=== PATIENT | male | born 1960 | race Caucasian/White ===

== ENCOUNTER 2017-02-13 21:33 | Emergency (ER) | payer OTHER ==
[~2017-02-13] VITALS: Ht 175.3 cm; Wt 80.5 kg
[~2017-02-13 21:33] MED LIST: AMOX1TAB10 PO; IBUP-1542 PO
[2017-02-13 22:08] VITALS: Ht 175.3 cm; Wt 80.5 kg
--- NOTE | 2017-02-14 00:20 | ERD ---
ER Documentation Chief Complaint Date/Time DATE: 02/14/17 TIME: 00:15 Chief Complaint PT HAS RIGHT THUMB PAIN ACCIDENT WITH DRILL BIT, X 2 DAYS , SWOLLLEN 10 [place] HPI 56-year-old male who presented emergency room for right thumb pain/swelling/ punctured wound. Stated that he injured this 1-1/2 day ago. Stated that he was fixing a metal when 1 of his coworker accidentally push it and it struck his right thumb/volar area. He stated that he developed a laceration in the volar area, then it got healed but eventually got swollen so he himself lacerated to try and drain the pus. Now he complains of increased swelling to right thumb. Denies headache, loss of consciousness, dizziness, blurry vision, changes in vision, photophobia, facial pain, ear pain, throat pain, difficulty swallowing, neck pain, shoulder pain, chest pain, cough, hemoptysis, abdominal pain, back pain, loss of appetite, nausea, vomiting, hematochezia, diarrhea, constipation, urinary symptoms, bladder and bowel incontinences, difficulty walking, recent travel, recent exposure to illness, recent antibiotic use in the last 3 months, fever, chills. Allergy: No known drug allergies. PMH: Hyperlipidemia. Medications: Simvastatin. Surgery: Left knee surgery. Family history: Denies. 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 Smokes about 10 sticks of cigarettes a day. Denies use of alcohol, use of illegal drugs. ROS All systems reviewed and are negative except as per history of present illness. Medications Home Meds Active Scripts Ibuprofen* (Motrin*) 600 Mg Tab, 600 MG PO Q8 for 10 Days, #30 TAB 0 Refills Prov:MERYL STAPLETON PA-C 07/22/16 Amoxicillin/Potassium Clav (Amox-Clav 875-125 mg Tablet) 875-125 mg Tab, 1 TAB PO BID for 7 Days, #14 TAB Prov:ADAM BRIONES MD 07/17/16 Allergies Allergies: Coded Allergies: No Known Allergy (Unverified , 07/17/16) PMhx/Soc History of Surgery: No Anesthesia Reaction: No Hx Neurological Disorder: No Hx Respiratory Disorders: No Hx Cardiac Disorders: Yes (HIGH CHOLESTEROL ) Hx Psychiatric Problems: No Hx Miscellaneous Medical Probl: No Hx Alcohol Use: No Hx Substance Use: No Hx Tobacco Use: Yes Smoking Status: Current every day smoker Physical Exam Vitals Vital Signs Date Time Temp Pulse Resp B/P Pulse Ox O2 Delivery O2 Flow Rate FiO2 02/13/17 22:08 98.6 89 17 151/89 99 Physical Exam CONSTITUTIONAL: Well-appearing; well-nourished; in no apparent distress. HEAD: Normocephalic; atraumatic. EYES: Conjunctiva clear, sclera non-icteric, EOM intact. PERRL Ears: Hearing intact. EACs clear, TMs non-bulging, non-inflamed, translucent & mobile, ossicles normal appearance, No obstructions, no erythema, no discharges Nose: No obstructions. No polyps. No external lesions. Mucosa non-inflamed. No external lesions, septum and turbinates normal. No rhinorrhea. No discharges. Frontal sinus is non-tender to palpation. Maxillary sinus is non-tender to palpation. MOUTH: Moist mucous membranes, no lesion, no obstructions, no vesicles, no thrush, patent airway Throat: Uvula in midline. Right tonsil is +1 with no erythema, no exudate. Left tonsil is +1 with no erythema, no exudate. Tolerating secretions well. Good gag reflex. Patent airway. Neck: Supple, without lesions, bruits, or adenopathy. No mass. Thyroid non- enlarged and non-tender to palpation. CHEST: Symmetrical chest. Respirations even and not labored. No retractions noted. CARDIOVASCULAR: Normal S1, S2. RRR. No murmurs, gallops. RESPIRATORY: Normal chest excursion with respiration; breath sounds clear and equal bilaterally; no wheezes, rhonchi, or rales. Breathing even and unlabored. Speaking in clear, full, and complete sentences w/ ease. ABDOMEN: Normal bowel sounds normal. Soft, round, non-distended, non-guarding, no tenderness, no rebound, no organomegaly, no masses, no pulsating abdominal mass. No hernia. No peritoneal signs. : No CVA tenderness. BACK: Symmetrical shoulder. Spine is midline without deformity, tenderness. No evidence of trauma or deformity. PELVIS: Stable pelvis. No evidence of trauma or deformity. MUSCULOSKELETAL: Normal gait and station. No misalignment, asymmetry, crepitation, defects, tenderness, masses, effusions, decreased range of motion, instability, atrophy or abnormal strength or tone in the head, neck, spine, ribs , pelvis or extremities. Right thumb volar area swelling. Right thumb volar area has 2 puncture wound no bleeding. Has good and full function of right thumb/fingers with full extension and flexion with a score of 5/5. Circulation sensation intact. No neurovascular deficits. No drainage.No calf tenderness. NEUROVASCULAR: Distal pulses are present. Pedal pulse are present, equal, and normal. Capillary refills are < 2 seconds. NEUROLOGIC: Alert and oriented x4. Speaks full and clear sentences. Cranial Nerves II-XII normal. Sensation to pain, touch, and proprioception normal. Grossly unremarkable. No neurologic deficits. Romberg test is negative. PSYCHOLOGICAL: The patients mood and manner are appropriate. No hallucinations , delusions. Not SI. Not HI. Has the capacity to decide for self SKIN: Normal for age and ethnicity; warm; dry; good turgor; no apparent lesions or exudates. No rashes, hives, discoloration. Right thumb volar area swelling. Right thumb volar area has 2 puncture wound no bleeding. No drainage. Results 24 hrs Current Medications Medications (Trade) Dose Ordered Sig/Gee Route PRN Reason Start Time Stop Time Status Last Admin Dose Admin Acetaminophen/ Hydrocodone Bitart ([place] (7.5-325)) 1 tab ONCE ONCE PO 02/14/17 00:30 02/14/17 00:31 DC 02/14/17 00:43 Diphtheria/ Tetanus/Acell Pertussis (Adacel) 0.5 ml ONCE ONCE IM* 02/14/17 00:30 02/14/17 00:31 DC 02/14/17 00:36 Procedures/MDM Examination: Please see physical examination. Disease process, medical treatment was explained to the patient and family member. They verbalized understanding and agreed with the diagnostic tests, medical treatment, and follow-up care. Radiology: X-ray of right hand Impression: Cortical irregularity of the proximal metaphysis of the distal phalanx of the first digit suggestive of a fracture. Treatment: [place]. Finger splint. Re-evaluation: No neurovascular deficits prior to and after the application of splint. Consultation: Differential diagnosis: Fracture versus contusion versus sprain versus cellulitis Medical decision makin-year-old male who presented emergency room for right thumb pain/swelling/punctured wound. Stated that he injured this 1-1/2 day ago. Stated that he was fixing a metal when 1 of his coworker accidentally push it and it struck his right thumb/volar area. He stated that he developed a laceration in the volar area, then it got healed but eventually got swollen so he himself lacerated to try and drain the pus. Now he complains of increased swelling to right thumb. Patient's complaint, patient's history about his complaint, my physical findings, my diagnostic test results, my reevaluation are consistent with my final diagnosis of finger fracture and possible cellulitis I discussed this case with Dr. Poncho Lee, my supervising emergency room physician. He agreed with my medical decision making to place the patient on a finger splint and discharge patient with Keflex, [place], Motrin. Medications prescribed are the following: keflex. Motrin. norco Patient and family member are made aware of the side effects and adverse reactions of the medications prescribed. Instructed on when to seek emergent and medical attention in case allergic/anaphylactic reactions or severe side effects and or adverse reactions to medications. Patient and family member verbalized understanding. Patient instructed Instructed to follow-up with his PCP in 24-48 hours. Instructed to Call 911 for chest pain, shortness of breath. Advised to come back here in ED as soon as possible for severity of symptoms which includes but not limited to: any new symptoms; shortness of breath/difficulty of breathing; cardiovascular changes; severe gastrointestinal symptoms; signs and symptoms of bleeding and or infection; signs of compartment syndrome/neurovascular changes; neurological changes/deficits. Patient and family member verbalized understanding. Upon discharge, patient is alert and oriented x 4, speaks full and clear sentences, denies pain, has no neurological deficits, has no neurovascular deficits, difficulty of breathing. Breathing even and unlabored. Lung sounds are clear to auscultation. Not in distress. Appears comfortable. Ambulatory with steady gait. Appears satisfied with care provided here in ED. Departure Diagnosis: Primary Impression: Finger injury Additional Impression: Finger fracture Condition: Good Additional Instructions: Patient instructed Instructed to follow-up with his PCP in 24-48 hours. Instructed to Call 911 for chest pain, shortness of breath. Advised to come back here in ED as soon as possible for severity of symptoms which includes but not limited to: any new symptoms; shortness of breath/difficulty of breathing; cardiovascular changes; severe gastrointestinal symptoms; signs and symptoms of bleeding and or infection; signs of compartment syndrome/neurovascular changes; neurological changes/deficits. Patient and family member verbalized understanding. RHODA CHAVEZ Feb 14, 2017 00:20
[2017-02-14] MEDS ORDERED: DIPHTH/TET/ACEL PERTUSS (ADULT) 0.5 ML VIAL IM* ONE (00:30)
[2017-02-14] MEDS ORDERED: HYDROCODONE/APAP (7.5/325) TAB PO ONE ×2 (00:30→02:30)
--- NOTE | 2017-02-14 01:24 | RADRPT ---
PROCEDURE: XR Hand. CLINICAL INDICATION: Right thumb injury. Pain. TECHNIQUE: Three views of the right hand were obtained. COMPARISON: No prior studies are available for comparison. FINDINGS: Slight cortical irregularity at the proximal metaphysis of the distal phalanx of the first digit sug gestive of a fracture. No other potential fractures identified. Joint relationships are maintained . Bone mineralization is within normal limits. Soft tissues are unremarkable. IMPRESSION: Cortical irregularity of the proximal metaphysis of the distal phalanx of the first digit suggestive of a fracture. RPTAT: HMVK .Poncho Blank MD, MD Date Time Electronically viewed and signed by .Poncho Blank MD, MD on 02/14/2017 01:24 .K/
[2017-02-14] MEDS ORDERED: CEPH-443 PO (01:41)
[2017-02-14] MEDS ORDERED: IBUP800T25 PO (01:42)
[2017-02-14] MEDS ORDERED: HYDR-902 PO (01:42)
== END 2017-02-14 02:31 | disposition home or self-care (01) ==
LOC: FTE 21:33
DX: S61.001A Unspecified open wound of right thumb without damage to nail, initial encounter (principal); S62.521A Displaced fracture of distal phalanx of right thumb, initial encounter for closed fracture; F17.210 Nicotine dependence, cigarettes, uncomplicated; W22.8XXA Striking against or struck by other objects, initial encounter; Y92.9 Unspecified place or not applicable; Z23 Encounter for immunization
CPT/HCPCS: 29130; 73130; 90471; 90715; Z7502; Z7610